=== PATIENT | male | born 1990 | race Caucasian/White ===

== ENCOUNTER 2017-01-15 09:24 | Emergency (ER) | payer OTHER ==
[2017-01-15 09:29] VITALS: RESP 18
[2017-01-15] MEDS ORDERED: ALBUTEROL NEBULIZED 7.5 MG, IPRATROPIUM NEBULIZED 0.5 MG, SODIUM CHLORIDE 0.9% NEBULIZ ... INHALATION ONE ×3 (09:44)
[2017-01-15] MEDS ORDERED: methylPREDNISolone SOD SUCCI 125 MG/2 ML VIAL IM STA (09:44)
--- NOTE | 2017-01-15 09:53 | ED ---
SOB HPI - General Chief Complaint: Shortness of Breath Stated Complaint: Difficulty breathing Time Seen by Provider: 01/15/17 09:39 Source: patient, RN notes reviewed Mode of arrival: ambulatory Limitations: no limitations - History of Present Illness Initial Comments: 26-year-old male presents to the emergency department with a chief complaint of shortness of breath. Patient suffers from asthma. Patient states she's been using his breathing treatments at home and his inhaler but he continues to have a week. Patient states this came on last night. Patient states that he is a former smoker however he still is in the house that does have smoking. Patient states he hasn't really had a cough. Patient states she just feels wheezy and tight. Patient denies any fever chills with this. Patient denies any feelings of being ill. Patient states that he was concerned due to his continued shortness of breath so he thought that he should be evaluated. Patient denies any recent fever, chills, chest pain, back pain, abdominal pain, nausea vomiting , numbness or tingling, dysuria or hematuria, constipation or diarrhea, headaches or visual changes, or any other current symptoms. - Related Data Home Medications Medication Instructions Recorded Confirmed Albuterol Inhaler [Ventolin Hfa 1 - 2 puff INHALATION RT-Q4H PRN 01/15/17 Inhaler] Albuterol Nebulized [Ventolin 2.5 mg INHALATION RT-Q4H PRN 01/15/17 01/15/17 Nebulized] Previous Rx's Medication Instructions Recorded Albuterol Inhaler [Ventolin Hfa 1 - 2 puff INHALATION Q4-6H PRN #1 01/15/17 Inhaler] inhaler Albuterol Nebulized [Ventolin 2.5 mg INHALATION Q4H #20 nebu 01/15/17 Nebulized] predniSONE 50 mg PO DAILY #5 tab 01/15/17 Allergies Allergy/AdvReac Type Severity Reaction Status Date / Time No Known Allergies Allergy Verified 01/15/17 09:36 Review of Systems ROS Statement: Those systems with pertinent positive or pertinent negative responses have been documented in the HPI. ROS Other: All systems not noted in ROS Statement are negative. Past Medical History Past Medical History: Asthma Additional Past Medical History / Comment(s): migraines History of Any Multi-Drug Resistant Organisms: None Reported Past Surgical History: No Surgical Hx Reported Past Psychological History: No Psychological Hx Reported Smoking Status: Current every day smoker Past Alcohol Use History: Rare Past Drug Use History: Marijuana General Exam Limitations: no limitations General appearance: alert, in no apparent distress Head exam: Present: atraumatic, normocephalic, normal inspection Eye exam: Present: normal appearance, PERRL, EOMI. Absent: scleral icterus, conjunctival injection, periorbital swelling ENT exam: Present: normal exam, mucous membranes moist Neck exam: Present: normal inspection. Absent: tenderness, meningismus, lymphadenopathy Respiratory exam: Present: wheezes (Diffusely). Absent: respiratory distress, rales, rhonchi, stridor, chest wall tenderness, accessory muscle use, decreased breath sounds, prolonged expiratory Cardiovascular Exam: Present: regular rate, normal rhythm, normal heart sounds. Absent: systolic murmur, diastolic murmur, rubs, gallop, clicks Neurological exam: Present: alert, oriented X3, CN II-XII intact. Absent: motor sensory deficit Psychiatric exam: Present: normal affect, normal mood Skin exam: Present: warm, dry, intact, normal color. Absent: rash Course Vital Signs 01/15/17 01/15/17 01/15/17 09:25 10:48 10:58 Temperature 97.9 F Pulse Rate 63 68 70 Respiratory 18 Rate Blood Pressure 127/77 O2 Sat by Pulse 95 Oximetry 01/15/17 01/15/17 11:16 11:31 Temperature Pulse Rate 68 66 Respiratory Rate Blood Pressure O2 Sat by Pulse Oximetry Medical Decision Making - Medical Decision Making 26-year-old male presents to emergency department with a chief complaint of what appears to be an asthma exacerbation. This time patient received steroids and continuous breathing treatment and he is starting to feel better. This time we did start him on steroids for home. We discussed continued region at the home. We discussed return parameters and follow-up. Patient stated that he understood and all his questions have been answered. He will be discharged at this time. - Radiology Data Radiology results: report reviewed, image reviewed Disposition Clinical Impression: Asthma exacerbation Disposition: HOME SELF-CARE Condition: Stable Instructions: Asthma (ED) Additional Instructions: Please use medication as discussed. Please follow up with family doctor if symptoms have not improved over the next two days. Please return to the emergency room if your symptoms increase or worsen or for any other concerns. Prescriptions: Albuterol Inhaler [Ventolin Hfa Inhaler] 1 - 2 puff INHALATION Q4-6H PRN #1 inhaler PRN Reason: Cough Albuterol Nebulized [Ventolin Nebulized] 2.5 mg INHALATION Q4H #20 nebu predniSONE 50 mg PO DAILY #5 tab Referrals: None,Stated [Primary Care Provider] - 1-2 days Sandi Hinojosa MD [STAFF PHYSICIAN] - 1-2 days Time of Disposition: 11:36
--- NOTE | 2017-01-15 10:10 | XR ---
EXAMINATION TYPE: XR chest 2V DATE OF EXAM: 01/15/2017 9:59 AM COMPARISON: Prior chest x-ray August 13, 2016. HISTORY: History of asthma presents with wheezing and shortness of breath. TECHNIQUE: Frontal and lateral views of the chest are obtained. FINDINGS: There is no focal air space opacity, pleural effusion, or pneumothorax seen. The cardiac silhouette size is within normal limits. The osseous structures are intact. IMPRESSION: No suspicious acute pulmonary process.
[2017-01-15 11:52] VITALS: BP 141/76; PULSE 79; TEMP 97
== END 2017-01-15 11:52 | disposition home or self-care (01) ==
LOC: EC 09:24
DX: J45.901 Unspecified asthma with (acute) exacerbation (principal); F17.200 Nicotine dependence, unspecified, uncomplicated
CPT/HCPCS: 99285; 96372; 94644; 71020; J2930

== ENCOUNTER 2018-03-30 11:07 | Emergency (ER) | payer OTHER ==
[2018-03-30 11:15] VITALS: RESP 18
[2018-03-30] MEDS ORDERED: methylPREDNISolone SOD SUCCI 125 MG/2 ML VIAL IM ONE (11:51)
[2018-03-30] MEDS ORDERED: IPRATROPIUM-ALBUTEROL 3 ML NEB INHALATION STA (11:51)
--- NOTE | 2018-03-30 12:38 | ED ---
URI HPI - General Chief Complaint: Upper Respiratory Infection Stated Complaint: URI/hx ashma Time Seen by Provider: 03/30/18 11:20 Source: patient, RN notes reviewed, old records reviewed Mode of arrival: ambulatory Limitations: no limitations - History of Present Illness Initial Comments: 27-year-old male history of asthma presents emergency Department chief complaint shortness breath cough. He reports more so the past few days. Denies any fevers or chills. He states the cough has been mildly productive. Patient states that he and his girlfriend are both sick same time. He has had 2 inhaler more frequently. No vomiting. - Related Data Home Medications Medication Instructions Recorded Confirmed Albuterol Inhaler [Ventolin Hfa 1 - 2 puff INHALATION RT-Q4H PRN 01/15/17 Inhaler] Albuterol Nebulized [Ventolin 2.5 mg INHALATION RT-Q4H PRN 01/15/17 03/30/18 Nebulized] Previous Rx's Medication Instructions Recorded Albuterol Inhaler [Ventolin Hfa 1 - 2 puff INHALATION RT-Q6H PRN 03/30/18 Inhaler] #1 inhaler Azithromycin [Zithromax Z-pack] 250 mg PO DIRECTED #6 tab 03/30/18 Ipratropium-Albuterol Nebulize 3 ml INHALATION TID #30 neb 03/30/18 [Duoneb 0.5 mg-3 mg/3 ml Soln] predniSONE 10 mg PO DAILY #15 tab 03/30/18 Allergies Allergy/AdvReac Type Severity Reaction Status Date / Time cat dander Allergy Swelling Verified 03/30/18 11:15 Review of Systems ROS Statement: Those systems with pertinent positive or pertinent negative responses have been documented in the HPI. ROS Other: All systems not noted in ROS Statement are negative. Past Medical History Past Medical History: Asthma Additional Past Medical History / Comment(s): migraines History of Any Multi-Drug Resistant Organisms: None Reported Past Surgical History: No Surgical Hx Reported Past Psychological History: No Psychological Hx Reported Smoking Status: Current every day smoker Past Alcohol Use History: Rare Past Drug Use History: Marijuana General Exam - General Exam Comments Initial Comments: 27-year-old male. Alert and oriented. No significant distress. Limitations: no limitations General appearance: alert, in no apparent distress Head exam: Present: atraumatic, normocephalic, normal inspection Eye exam: Present: normal appearance, PERRL, EOMI. Absent: scleral icterus, conjunctival injection, periorbital swelling ENT exam: Present: normal exam, mucous membranes moist Neck exam: Present: normal inspection. Absent: tenderness, meningismus, lymphadenopathy Respiratory exam: Present: wheezes. Absent: normal lung sounds bilaterally, respiratory distress, rales, rhonchi, stridor Cardiovascular Exam: Present: regular rate, normal rhythm, normal heart sounds. Absent: systolic murmur, diastolic murmur, rubs, gallop, clicks GI/Abdominal exam: Present: soft, normal bowel sounds. Absent: distended, tenderness, guarding, rebound, rigid Extremities exam: Present: normal inspection, full ROM, normal capillary refill. Absent: tenderness, pedal edema, joint swelling, calf tenderness Back exam: Present: normal inspection Neurological exam: Present: alert, oriented X3, CN II-XII intact Psychiatric exam: Present: normal affect, normal mood Course Vital Signs 03/30/18 03/30/18 03/30/18 11:11 12:16 12:23 Temperature 98.7 F Pulse Rate 63 64 68 Respiratory 18 Rate Blood Pressure 130/82 O2 Sat by Pulse 94 L Oximetry 03/30/18 13:11 Temperature 98.2 F Pulse Rate 65 Respiratory 18 Rate Blood Pressure 145/79 O2 Sat by Pulse 93 L Oximetry Medical Decision Making - Medical Decision Making 27-year-old male presents for estrogen complaint of wheezing shortness of breath. History of asthma. He was given IM Solu-Medrol, DuoNeb treatment. Patient CXR was reviewed adn unremarkable. He reports cough is productive. Patient has sngificant improevement after douneb treatment. Will DC with inhaler , steroids, and Azithromycin for bronchitis. Discussed PCP follow up. Will also write for douneb to use in nebulizer athome. - Radiology Data Radiology results: report reviewed Chest x-ray negative for any acute process. Disposition Clinical Impression: Asthma, Bronchitis Disposition: HOME SELF-CARE Condition: Good Instructions: Acute Bronchitis (ED) Additional Instructions: Patient has a follow-up with primary care provider. Return to the emergency department if any alarming signs or symptoms occur. Prescriptions: Albuterol Inhaler [Ventolin Hfa Inhaler] 1 - 2 puff INHALATION RT-Q6H PRN #1 inhaler PRN Reason: Shortness Of Breath Azithromycin [Zithromax Z-pack] 250 mg PO DIRECTED #6 tab Ipratropium-Albuterol Nebulize [Duoneb 0.5 mg-3 mg/3 ml Soln] 3 ml INHALATION TID #30 neb predniSONE 10 mg PO DAILY #15 tab Is patient prescribed a controlled substance at d/c from ED?: No When asked, does pt state using other controlled substances?: No If prescribed controlled substance>3 days was MAPS reviewed?: No If opioid is for acute pain is fill amount 7 days or less?: No If Rx opioid, was Start Talking consent form obtained?: No Referrals: None,Stated [Primary Care Provider] - 1-2 days Sandi Hinojosa MD [STAFF PHYSICIAN] - 1-2 days Time of Disposition: 12:35
--- NOTE | 2018-03-30 12:38 | XR ---
EXAMINATION TYPE: XR chest 2V DATE OF EXAM: 03/30/2018 COMPARISON: 01/15/2017 INDICATION: Pain TECHNIQUE: Frontal and lateral views of the chest are obtained. FINDINGS: The heart size is normal. The pulmonary vasculature is normal. The lungs are clear. IMPRESSION: 1. No acute pulmonary process.
[2018-03-30 13:13] VITALS: BP 145/79; PULSE 65; TEMP 98.2
== END 2018-03-30 13:13 | disposition home or self-care (01) ==
LOC: EC 11:07
DX: J45.909 Unspecified asthma, uncomplicated (principal); F17.200 Nicotine dependence, unspecified, uncomplicated; Z91.09 Other allergy status, other than to drugs and biological substances
CPT/HCPCS: 94640; 71046; 99284; 96372; J2930